=== PATIENT | male | born 1990 | race Caucasian/White ===

== ENCOUNTER 2022-11-05 14:24 | Emergency (ER) | payer OTHER, BC, SELFPAY ==
--- NOTE | ~2022-11-05 | US_ITS ---
EXAMINATION: US SCROTUM CLINICAL INFORMATION: Right-sided pain. COMPARISON: None available. TECHNIQUE: A sonogram of the scrotum was performed assessing alegria-scale appearance and color Doppler flow. Spectral Doppler analysis of the arterial and venous flow were performed in the testes bilaterally. FINDINGS: RIGHT: Right testicle measures 4.6 x 2.4 x 3 cm, volume 17.2 mL. No focal testicular parenchymal lesions are visualized. Spectral Doppler analysis of the arterial and venous flow is normal in the right testis. Right epididymal head is normal in size. No right hydrocele or varicocele is seen. Right epididymal Doppler flow is normal. LEFT: Left testicle measures 5.2 x 2.4 x 3.3 cm, volume 21.5 mL. No focal testicular parenchymal lesions are visualized. Spectral Doppler analysis of the arterial and venous flow is normal in the left testis. Left epididymal head is normal in size. No left hydrocele or varicocele is seen. Left epididymal Doppler flow is normal. US/US scrotum doppler IMPRESSION: Normal ultrasound of scrotum.
--- NOTE | ~2022-11-05 | US_ITS ---
EXAMINATION: US right groin, LIMITED CLINICAL INFORMATION: Pain in right groin. COMPARISON: None available. TECHNIQUE: Grayscale ultrasound of the right groin was performed FINDINGS: No hernia. No fluid collection. No hyperemia on color Doppler. No significant lymphadenopathy. There are a few morphologically normal-appearing lymph nodes. US/US pelvic limited IMPRESSION: Unremarkable examination.
--- NOTE | ~2022-11-05 | US_ITS ---
EXAMINATION: US SCROTUM CLINICAL INFORMATION: Right-sided pain. COMPARISON: None available. TECHNIQUE: A sonogram of the scrotum was performed assessing alegria-scale appearance and color Doppler flow. Spectral Doppler analysis of the arterial and venous flow were performed in the testes bilaterally. FINDINGS: RIGHT: Right testicle measures 4.6 x 2.4 x 3 cm, volume 17.2 mL. No focal testicular parenchymal lesions are visualized. Spectral Doppler analysis of the arterial and venous flow is normal in the right testis. Right epididymal head is normal in size. No right hydrocele or varicocele is seen. Right epididymal Doppler flow is normal. LEFT: Left testicle measures 5.2 x 2.4 x 3.3 cm, volume 21.5 mL. No focal testicular parenchymal lesions are visualized. Spectral Doppler analysis of the arterial and venous flow is normal in the left testis. Left epididymal head is normal in size. No left hydrocele or varicocele is seen. Left epididymal Doppler flow is normal. US/US scrotum IMPRESSION: Normal ultrasound of scrotum.
--- NOTE | 2022-11-05 14:27 | ED.ABDPAIN ---
HPI - Abdominal Pain General Chief Complaint: Urogenital-Male <SALVADOR Robins Last Filed: 11/05/22 14:32> Stated Complaint: possible hernia <SALVADOR Robins Last Filed: 11/05/22 14:32> Time Seen by Provider: 11/05/22 14:47 <SALVADOR Robins Last Filed: 11/05/22 14:32> Source: patient and RN notes reviewed <SALVADOR Montenegro Last Filed: 11/05/22 17:36> Mode of arrival: ambulatory <SALVADOR Montenegro Last Filed: 11/05/22 17:36> Limitations: no limitations <SALVADOR Montenegro Last Filed: 11/05/22 17:36> History of Present Illness HPI narrative: This is a [id number]-male presenting to the emergency department, accompanied by his mother, with complaints of right testicular pressure since 10/21. Patient states that 15 days ago, he was running and felt something pull in his right inner groin and had pressure in his right testicle. Patient reports that since he has felt this pain and pressure, it has not resolved. He reports that when he bends over and lifts objects, the fullness feeling in his right testicle increases. He states that he does not have any abdominal pain, nausea, or vomiting. Denies dysuria, urinary urgency, urinary frequency. Denies penile discharge. Denies rashes. He is not sexually active and is not concerned for any STIs. He states that he has never had similar symptoms in the past. <SALVADOR Montenegro Last Filed: 11/05/22 17:36> Pertinent past history: none <SALVADOR Montenegro Last Filed: 11/05/22 17:36> Onset (ago): week(s) <SALVADOR Montenegro Last Filed: 11/05/22 17:36> Pain Consistency: constant <SALVADOR Montenegro Last Filed: 11/05/22 17:36> Location: none <SALVADOR Montenegro Last Filed: 11/05/22 17:36> Severity: moderate <SALVADOR Montenegro Last Filed: 11/05/22 17:36> Quality: fullness <SALVADOR Montenegro Last Filed: 11/05/22 17:36> Radiation: none <SALVADOR Montenegro - Last Filed: 11/05/22 17:36> Migration to: no migration <SALVADOR Montenegro - Last Filed: 11/05/22 17:36> Exacerbating factors: nothing <SALVADOR Montenegro - Last Filed: 11/05/22 17:36> Relieving factors: nothing <SALVADOR Montenegro - Last Filed: 11/05/22 17:36> Associated symptoms: denies other symptoms <SALVADOR Montenegro - Last Filed: 11/05/22 17:36> Related Data Allergies/Adverse Reactions: Allergies Allergy/AdvReac Type Severity Reaction Status Date / Time horse dander [HORSE DANDER] Allergy Intermediate THRAOT Verified 11/05/22 14:29 ITCHY <SALVADOR Robins - Last Filed: 11/05/22 14:32> Review of Systems Review of Systems Constitutional: No Weight loss, No Fever, No Chills ENT/Mouth: No Ear Pain, No Nasal Congestion, No Sinus Pain, No Hoarseness, No sore throat, No Rhinorrhea, No Swallowing Difficulty Cardiovascular: No Chest Pain, No SOB Respiratory: No Cough, No Sputum, No Wheezing Gastrointestinal: No Nausea, No Vomiting, No Diarrhea, No Constipation, No Abdominal pain Genitourinary: +right testicular fullness, No Dysuria, No Urinary Frequency, No Hematuria, No Urinary Incontinence/retention, No Urgency, No Flank Pain Musculoskeletal: No joint pain, No Myalgias, No Joint Swelling Skin: No Skin Lesions, No rash Neuro: No Weakness, No Numbness, No Paresthesias <SALVADOR Montenegro Last Filed: 11/05/22 17:36> Yes all other systems are reviewed and are negative <SALVADOR Montenegro Last Filed: 11/05/22 17:36> Constitutional: Reports as per HPI <SALVADOR Montenegro Last Filed: 11/05/22 17:36> [facility] Past Medical History Attestation statement: The following information was validated with the patient. <SALVADOR Montenegro Last Filed: 11/05/22 17:36> Social History Social History: Social History Advance Directives: No Advance Directives Information Provided: No <SALVADOR Robins - Last Filed: 11/05/22 14:32> Physical Exam ED Vital Signs: Vital Signs - 24 hr 11/05/22 14:29 Temperature 98 F Pulse Rate 114 H Respiratory Rate 18 Blood Pressure 147/87 H Pulse Oximetry 98 Oxygen Delivery Method Room Air BMI result Body Mass Index 29.7 <SALVADOR Robins - Last Filed: 11/05/22 14:32> Vital Signs - 24 hr 11/05/22 14:29 Temperature 98 F Pulse Rate 114 H Respiratory Rate 18 Blood Pressure 147/87 H Pulse Oximetry 98 Oxygen Delivery Method Room Air BMI result Body Mass Index 29.7 <SALVADOR Montenegro - Last Filed: 11/05/22 17:36> Const General: cooperative, comfortable, no acute distress and anxious <SALVADOR Montenegro - Last Filed: 11/05/22 17:36> Orientation/consciousness: patient oriented x3 <SALVADOR Montenegro - Last Filed: 11/05/22 17:36> Limitations: no limitations <SALVADOR Montenegro - Last Filed: 11/05/22 17:36> HENMT Head: Yes normal to inspection, Yes normocephalic and Yes atraumatic <SALVADOR Montenegro - Last Filed: 11/05/22 17:36> Ears: hearing grossly normal bilaterally <SALVADOR Montenegro - Last Filed: 11/05/22 17:36> General nose exam: Normal external nose present <SALVADOR Montenegro - Last Filed: 11/05/22 17:36> Face and sinus: Yes normal facial exam <SALVADOR Montenegro Last Filed: 11/05/22 17:36> Mouth: Normal oral and palatal mucosa present, oropharynx normal and moist mucous membranes <SALVADOR Montenegro - Last Filed: 11/05/22 17:36> Throat: Yes posterior oropharynx normal <SALVADOR Montenegro - Last Filed: 11/05/22 17:36> Eyes General: appearance normal, both eyes and all related structures <SALVADOR Montenegro - Last Filed: 11/05/22 17:36> Eyelids: Yes eyelids normal <Brii Pineda [facility] Last Filed: 11/05/22 17:36> Conjunctivae: conjunctivae normal <Brii Pineda [facility] Last Filed: 11/05/22 17:36> Sclerae: sclerae normal <Brii Pineda [facility] Last Filed: 11/05/22 17:36> Pupils: Equal, round and reactive pupils present <Brii Pineda [facility] Last Filed: 11/05/22 17:36> EOM: EOMs intact bilaterally <Brii Pineda, [facility] Last Filed: 11/05/22 17:36> Neck Neck: Yes normal visual inspection, Yes full ROM and Yes no lymphadenopathy <rBii Pineda PR - Last Filed: 11/05/22 17:36> Lymphatic: no lymphadenopathy noted <Brii Pineda [facility] Last Filed: 11/05/22 17:36> Chest Chest palpation & inspection: normal inspection of the chest <Brii Pineda PR - Last Filed: 11/05/22 17:36> Resp Effort & Inspection: normal respiratory effort and able to speak in complete sentences <Brii Pineda [facility] Last Filed: 11/05/22 17:36> Auscultation: clear to auscultation bilaterally, no crackles, no rales, no rhonchi and no wheezes <Brii Pineda [facility] Last Filed: 11/05/22 17:36> Cardio Rate: regular rate <Brii Pineda [facility] Last Filed: 11/05/22 17:36> Rhythm: regular rhythm <Brii Pineda [facility] Last Filed: 11/05/22 17:36> Heart sounds: S1 normal heart sound present and S2 normal heart sound present <Brii Pineda [facility] Last Filed: 11/05/22 17:36> GI Other: Abdomen is soft, nontender, nondistended, normoactive bowel sounds. <Brii Pineda [facility] Last Filed: 11/05/22 17:36> Inspection: Yes normal to inspection <Brii Pineda [facility] Last Filed: 11/05/22 17:36> Other: Right scrotum is nonerythematous with no ulcerations or lesions. There is a palpable area of swelling and tenderness just superior of the testes when lying down. No surrounding inguinal lymphadenopathy. <Brii Pineda PR - Last Filed: 11/05/22 17:36> Male General Exam: Yes normal external exam, No ecchymosis, No edema and No Genital lesions present <Brii Pineda PR - Last Filed: 11/05/22 17:36> Penis: normal penis, uncircumcised and No Genital lesions present <Brii Pineda PR - Last Filed: 11/05/22 17:36> Testes: normal testicular lie <Brii Pineda PR - Last Filed: 11/05/22 17:36> Skin General skin exam: no rashes or lesions noted <Brii Pineda PR - Last Filed: 11/05/22 17:36> Trauma: no lacerations or abrasions <Brii Pineda PR - Last Filed: 11/05/22 17:36> Wounds: no wounds <Brii Pineda PR - Last Filed: 11/05/22 17:36> Neuro General: patient oriented x3 and moves all extremities <Brii Pineda PR - Last Filed: 11/05/22 17:36> Cranial nerves: Yes Equal, round and reactive pupils present <Brii Pineda PR - Last Filed: 11/05/22 17:36> Extrem General: Yes normal to inspection <Brii Pineda PR - Last Filed: 11/05/22 17:36> Right upper extremity: normal to inspection <Brii Pineda PR - Last Filed: 11/05/22 17:36> Left upper extremity: normal to inspection <Brii Pineda PR - Last Filed: 11/05/22 17:36> Right lower extremity: normal to inspection <Brii Pineda PR - Last Filed: 11/05/22 17:36> Left lower extremity: normal to inspection <Brii Pineda PA - Last Filed: 11/05/22 17:36> Course Course Course Narrative: RME--32-year-old male with no significant past medical history presenting to the ED complaining of lower abdominal pressure extending into R testicle with 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 Denies fever, chills, N/V/D UA, CTNG & US ordered <SALVADOR Robins - Last Filed: 11/05/22 14:32> Medical Decision Making Medical Decision Making [facility] Narrative: 32 y/o M, with no reported past medical history, who presents to the emergency department, with complaints of right testicular fullness since 10/21. 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 On examination, patient is mildly tachycardic at 114bpm and mildly hypertensive at 147/87 - patient is anxious appearing, all other vital signs within normal limits. Abdomen is soft and nontender, Right scrotum is nonerythematous with no ulcerations or lesions, with palpable area of swelling and tenderness just superior of the testes when lying down, which becomes more pronounced with standing. Scrotal ultrasound and pelvic ultrasound unremarkable for testicular torsion or hernia. Urinalysis unremarkable. Patient seen and evaluated by Dr. Carbajal, and patient's clinical findings consistent with hernia. Discussed these findings with patient - given education on avoiding heavy lifting and reducing abdominal pressure, given referral to surgeon for further management of symptoms. Discussed red flag symptoms of when to return. Patient understands and agrees with plan. <SALVADOR Montenegro - Last Filed: 11/05/22 17:36> Differential Diagnosis Differential Diagnoses: The differential diagnosis associated with the presentation includes <SALVADOR Montenegro - Last Filed: 11/05/22 17:36> Testicular torsion, inguinal hernia, hydrocele, varicocele <SALVADOR Montenegro - Last Filed: 11/05/22 17:36> Admission/Observation Consideration of admission/observation: Escalation of care including admission/observation considered <SALVADOR Montenegro - Last Filed: 11/05/22 17:36> Lab Data [facility] Lab Attestation statement: I reviewed the patient's lab results. <SALVADOR Montenegro Last Filed: 11/05/22 17:36> Labs: Lab Results 11/05/22 11/05/22 Range/Units 14:38 14:38 Urine Color Yellow Urine Appearance Clear Urine pH 5.5 (5.0-9.0) Ur Specific [place] >= 1.030 H (1.005-1.025) Urine Protein Negative (Neg-Trace) mg/dL Urine Glucose (UA) Negative (Negative) mg/dL Urine Ketones 15 (Negative) mg/dL Urine Blood Negative (Negative) Urine Nitrite Negative (Negative) Ur Leukocyte Esterase Negative (Negative) Chlam trachomat DNA PCR NOT DETECTED (Not Detect.) N.gonorrhoeae DNA (PCR) NOT DETECTED (Not Detect.) <SALVADOR Robins - Last Filed: 11/05/22 14:32> Lab Results 11/05/22 11/05/22 Range/Units 14:38 14:38 Urine Color Yellow Urine Appearance Clear Urine pH 5.5 (5.0-9.0) Ur Specific [place] >= 1.030 H (1.005-1.025) Urine Protein Negative (Neg-Trace) mg/dL Urine Glucose (UA) Negative (Negative) mg/dL Urine Ketones 15 (Negative) mg/dL Urine Blood Negative (Negative) Urine Nitrite Negative (Negative) Ur Leukocyte Esterase Negative (Negative) Chlam trachomat DNA PCR NOT DETECTED (Not Detect.) N.gonorrhoeae DNA (PCR) NOT DETECTED (Not Detect.) <SALVADOR Montenegro - Last Filed: 11/05/22 17:36> Radiology Impression Discussion of test interpretation with radiology: I have reviewed the radiologist's reading. <SALVADOR Montenegro - Last Filed: 11/05/22 17:36> Radiologist Impression: CLINICAL INFORMATION: Right-sided pain. COMPARISON: None available. TECHNIQUE: A sonogram of the scrotum was performed assessing alegria-scale appearance and color Doppler flow. Spectral Doppler analysis of the arterial and venous flow were performed in the testes bilaterally. FINDINGS: RIGHT: Right testicle measures 4.6 x 2.4 x 3 cm, volume 17.2 mL. No focal testicular parenchymal lesions are visualized. Spectral Doppler analysis of the arterial and venous flow is normal in the right testis. Right epididymal head is normal in size. No right hydrocele or varicocele is seen. Right epididymal Doppler flow is normal. LEFT: Left testicle measures 5.2 x 2.4 x 3.3 cm, volume 21.5 mL. No focal testicular parenchymal lesions are visualized. Spectral Doppler analysis of the arterial and venous flow is normal in the left testis. Left epididymal head is normal in size. No left hydrocele or varicocele is seen. Left epididymal Doppler flow is normal. US/US scrotum doppler IMPRESSION: Normal ultrasound of scrotum. ? Dictated By: Itz Aly MD EXAMINATION: US right groin, LIMITED CLINICAL INFORMATION: Pain in right groin. COMPARISON: None available.? TECHNIQUE: Grayscale ultrasound of the right groin was performed? FINDINGS: No hernia. No fluid collection. No hyperemia on color Doppler. No significant lymphadenopathy. There are a few morphologically normal-appearing lymph nodes.? US/US pelvic limited IMPRESSION: Unremarkable examination.? ? Dictated By: Itz Aly MD Signed By: <Electronically signed by Itz Aly MD in OV> 11/05/22 1533 DD/ 1504 TD/TT:? History Professor: SOLOMON <SALVADOR Montenegro - Last Filed: 11/05/22 17:36> External Record Review External record reviewed: Inpatient record, Office record, Outpatient record, Prior outpatient labs, Prior outpatient radiology, Primary care record and Outside ED record <SALVADOR Montenegro - Last Filed: 11/05/22 17:36> Discharge Plan Discharge Clinical Impression: Inguinal hernia <SALVADOR Robins - Last Filed: 11/05/22 14:32> Patient Disposition: Home, Self-Care <SALVADOR Robins - Last Filed: 11/05/22 14:32> Instructions: Inguinal Hernia (ED) <SALVADOR Robins - Last Filed: 11/05/22 14:32> Additional Instructions: Please follow up with the referred surgeon, call today to make an appointment. Please limit excessively straining your abdominal muscles (heavy lifting). If you develop any new or worsening symptoms (fevers, chills, nausea, vomiting, or abdominal pain) please return for re-evaluation. <SALVADOR Robins - Last Filed: 11/05/22 14:32> Referrals: Andrew Shay MD [Physician] - <SALVADOR Robins - Last Filed: 11/05/22 14:32> Stand Alone Forms: Work/School Release <SALVADOR Robins - Last Filed: 11/05/22 14:32> Interventions: ED Discharge Assessment Last Done: 11/05/22 16:10 <SALVADOR Robins - Last Filed: 11/05/22 14:32> Discharge Date/Time: 11/05/22 16:10 <SALVADOR Robins - Last Filed: 11/05/22 14:32>
[2022-11-05 14:29] VITALS: BP 147/87; PULSE 114; RESP 18; TEMP 36.6; O2SAT 98; BMI 29.7
[2022-11-05 14:45] LABS: Appearance Urine Clear; Color Urine Yellow; Glucose Urine UA Negative (Negative); Leukocyte Esterase Urine Negative (Negative); Nitrite Urine Negative (Negative); PH 5.5 (5.0-9.0); Specific Gravity - Urine >= 1.030 (1.005-1.025); Urine Blood Negative (Negative); Urine Ketones 15 mg/dL (Negative); Urine Protein Negative (Neg-Trace)
--- NOTE | 2022-11-05 16:05 | PC.NURSE ---
Resumed care of patient while he was in U/S, provider and MD at bedside to go over plan with patient and mom, plan in place, D/Corders in
[2022-11-05 16:14] LABS: CT PCR NOT DETECTED (Not Detect.); NG PCR NOT DETECTED (Not Detect.)
== END 2022-11-05 16:10 | disposition home or self-care (01) ==
PROVIDERS: Physician Assistant; Emergency Provider Emergency Medicine
DX: K40.90 Unilateral inguinal hernia, without obstruction or gangrene, not specified as recurrent (principal); N50.811 Right testicular pain; R00.0 Tachycardia, unspecified
CPT/HCPCS: 0353U; 76857; 76870; 81003; 93975; 99282; 99284

== ENCOUNTER → 2022-11-16 14:01 | Outpatient (BNVA) | payer BC, SELFPAY | PROVIDERS: Visit Provider Surgery | DX: Z13.89 Encounter for screening for other disorder (principal) ==

== ENCOUNTER → 2022-11-26 10:48 | Outpatient (BNVA) | payer BC, SELFPAY | PROVIDERS: Visit Provider Surgery ==

== ENCOUNTER 2022-12-08 08:27 | Day surgery (SDC) | payer BC, SELFPAY ==
[2022-12-04 11:09] VITALS: BMI 29.6
--- NOTE | 2022-12-07 10:34 | P.CONAN_ITS ---
Documented by User: Analy Best NP 12/07/22 10:34 HPI - Anesthesia Eval Consult details Narrative: 32yo M for Hernia Repair Umbilical,with poss mesh PMFSH Active Problems Active Problems: All Active Problems Groin pain (Acute) Umbilical hernia (Acute) Smoker (Acute) Past Medical History Medical History Groin pain Smoker Umbilical hernia Family History Family History Father Pancreatic cancer, Onset Age: 60 Surgical History Surgical History Hx of wisdom tooth extraction Social History Social History Alcohol intake: current Patient Tobacco Use Status: Current everyday Tobacco user Tobacco use type: Cigarette Cigarettes Per Day: 10 Use of substances other than those prescribed or required for medical reasons: No Are you DNR?: No Advance Directives: No Advance Directives Information Provided: Yes Meds Allergies Allergy/AdvReac Type Severity Reaction Status Date / Time horse dander [HORSE DANDER] Allergy Intermediate THRAOT Verified 12/08/22 09:01 ITCHY Exam Exam Date and Time: December 07, 2022 1034 Height,Weight and Vital Signs: Height 5 ft 7 in Weight 85.729 kg Assessment and Plan Assessment Anesthesia Assessment: Chart Reviewed Documented by User: Dheeraj Phoenix MD 12/08/22 11:35 PMFSH Past Medical History Medical History Groin pain Smoker Umbilical hernia Family History Family History Father Pancreatic cancer, Onset Age: 60 Family history of problems with anesthesia: No Surgical History Surgical History Hx of wisdom tooth extraction History of Problems with Anesthesia: No Social History Social History Alcohol intake: current Patient Tobacco Use Status: Current everyday Tobacco user Tobacco use type: Cigarette Cigarettes Per Day: 10 Use of substances other than those prescribed or required for medical reasons: No Are you DNR?: No Advance Directives: No Advance Directives Information Provided: Yes Meds Allergies Allergy/AdvReac Type Severity Reaction Status Date / Time horse dander [HORSE DANDER] Allergy Intermediate THRAOT Verified 12/08/22 09:01 ITCHY Exam Airway Mallampati Class: II TM Dist: >3cm Neck ROM: Full Loose/Missing/Broken Teeth: Yes Assessment and Plan Assessment Anesthesia Assessment: Anesthesia Plan Discussed Final Anesthetic Review Family History of Problems with Anesthesia: No History of Problems with Anesthesia: No NPO: Yes ASA Class: II Final Preanesthetic Review: No Changes in Pt Med Stat, Meds/Allgs Chart Review ed, Consent Obtained/Reviewed and Anes Risks/Benef Reviewed Patient Risk: Low Procedure Risk: Low Assessment/Block/Sedation in SS: Assess/Block/Sedation-SS Anesthetic Plan Anesthetic Plan: GA Disposition: Standard PACU
[2022-12-08] VITALS (7 sets, daily range): BP systolic 99–120; BP diastolic 57–79; PULSE 79–102; RESP 10–20; TEMP 36.2–37.1; O2SAT 96–100; BMI 30.1
[2022-12-08] MEDS: Lactated Ringers 1,000 ML 100 ML IVCONT (09:56)
--- NOTE | 2022-12-08 11:11 | MHC.SHP ---
Pre-Procedural Eval Section A Date of Service: 12/08/22 The patient is an INPATIENT: No Changes since office visit: No Cold of Flu in the past 2 weeks, No New Medical Problems, No Changes in Medication and No Patient answered all questions The History & Physical has been completed within 30 days and I have reviewed it.: Yes Section B Chief Complaint: Umbilical hernia without obstruction or gangrene Allergies: Allergies Allergy/AdvReac Type Severity Reaction Status Date / Time horse dander [HORSE DANDER] Allergy Intermediate THRAOT Verified 12/08/22 09:01 ITCHY Plan I have reviewed the history and physical and performed a pertinent physical examination on my patient. No changes have occurred unless specified. Time Spent With Patient Time: Total time managing care of this patient today ____ minutes.
--- NOTE | 2022-12-08 12:16 | W.PM.OPN ---
Operative Note Operative Note Date of Service: 12/08/22 Narrative: Preop diagnosis: Umbilical hernia Postop diagnosis: Umbilical hernia Procedure: Repair of umbilical hernia with Ventralex mesh Surgeon: Andrew Shay MD assistant restaurant general manager: SALVADOR Shelley The patient is a 32-year-old male with an umbilical hernia. He wanted to proceed with repair. He understood the technique of repair with mesh. He was aware of the risks, benefits, and alternatives. He was brought to the operating room. He was placed supine under general anesthesia via laryngeal mask airway. The abdomen is prepped and draped in the usual sterile fashion. A surgical time-out was done. The patient received cefazolin 2 g IV preoperatively. I infiltrated the planned line of incision with lidocaine 1%. I made curvilinear transverse the umbilical incision using a blade 15. This was carried down with electrocautery through the full-thickness of the skin. I proceeded to lift the umbilicus as a flap off of the rest of the subcutaneous layer as well as the hernia. The hernia containing only fat.I continued to sharply dissect the hernia contents off of the rest of the subcutanoeus layer down to the fascial defect. I the thin adhesions tethering the hernia contents to the fascial edge using Metzenbaum scissors. This allowed me to reduce the hernia completely. I applied a hemostat on the fascial layer. I examined the margins around this fascial defect in this appeared to be clear. The fascial defect was about 2 cm in diameter. I used a small-sized Ventralex mesh. This was positioned flat under the fascial defect. I secured the Prolene straps of the mesh to the fascial edge on each side. This was done using a Surgipro 2-0 stitch., I trimmed the Prolene straps flush on the fascial level. I closed the fascial defect with a [id number] Maxon 1 stitch. I irrigated. The umbilicus was tacked down to the Fascia to recreate the dimple. Subcutaneous layer was reapposed with was supple 3-0 interrupted sutures. Skin closure was achieved with subcuticular 4-0 service sutures. The area was infiltrated with Marcaine 0.5% for postop analgesia. Dressings were applied. The procedure was completed The patient tolerated procedure well. There were no immediate complications. Initial and final counts of sponges and instruments were correct. Estimated blood loss was less than 5 cc. The patient was extubated without difficulty and transferred to the recovery room with stable vital signs.
== END 2022-12-08 14:45 | disposition home or self-care (01) ==
PROVIDERS: Visit Provider Surgery
PROC: (CPT 49591; principal; 2022-12-08 10:40)
DX: K42.9 Umbilical hernia without obstruction or gangrene (principal); K66.0 Peritoneal adhesions (postprocedural) (postinfection); R10.30 Lower abdominal pain, unspecified; Z80.0 Family history of malignant neoplasm of digestive organs; F17.210 Nicotine dependence, cigarettes, uncomplicated
CPT/HCPCS: 49591; C1781; J0690; J1100; J1885; J2250; J2405; J2795; J3010

== ENCOUNTER → 2022-12-21 15:48 | Outpatient (BNVA) | payer BC, SELFPAY | PROVIDERS: Visit Provider Surgery ==

== ENCOUNTER → 2023-01-06 09:16 | Outpatient (BNVA) | payer BC, SELFPAY | PROVIDERS: Visit Provider Surgery ==